=== PATIENT | male | born 1965 | race African-American/Black ===

== ENCOUNTER 2019-10-02 14:50 | Emergency (ER) | payer SELFPAY ==
[2019-10-02] MEDS ORDERED: Tetan/Diph/Pertus SYR(Tdap)* 0.5 ML SYR(BOOSTRIX) use SYR contains LATEX IM ONE (16:05)
[2019-10-02] MEDS ORDERED: Lidocaine 1% MPF ** 5 ML VIAL INJ ONE (16:05)
--- NOTE | 2019-10-02 16:40 | UC ---
Laceration HPI - History Of Current Complaint Chief Complaint: EDLacSutureRecheck Stated Complaint: LAC ON LEFT HAND PER PT Time Seen by Provider: 10/02/19 16:05 Hx Obtained From: Patient Pain Intensity: 4 - Allergies/Home Medications Allergies/Adverse Reactions: Allergies Allergy/AdvReac Type Severity Reaction Status Date / Time No Known Allergies Allergy Verified 10/02/19 15:01 PMH/Surg Hx/FS Hx/Imm Hx Previously Healthy: No - Family History Known Family History: Positive: Non-Contributory - Social History Occupation: Employed Full-time Lives: With Family Alcohol Use: Daily Substance Use Type: None Smoking Status (MU): Heavy Every Day Tobacco Smoker Review of Systems All Other Systems Reviewed And Are Negative: Yes Physical Exam Vital Signs: Initial Vital Signs Temp 99.3 F 10/02/19 14:54 Pulse 82 10/02/19 14:54 Resp 16 10/02/19 14:54 BP 146/82 10/02/19 14:54 Pulse Ox 98 10/02/19 14:54 Discharge ED - Discharge Plan Condition: Improved Disposition: HOME Patient Education Materials: Care For Your Stitches (ED) Referrals: [facility] [Outside] Additional Instructions: Suture removal in 10 days Keep wound clean and dry Return to ER for redness, swelling, or drainage from suture site - Billing Disposition and Condition Condition: IMPROVED Disposition: Home
[2019-10-02 16:41] VITALS: BP 139/78
--- NOTE | 2019-10-02 16:45 | ED ---
Laceration/Wound HPI - HPI Summary HPI Summary: Patient is a 53-year-old male who presents emergency department for laceration to his left hand that occurred just prior to arrival. 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 No other injuries were sustained. Symptoms are mild in severity. Unaware of last tetanus immunization. No significant past medical history. Symptomsaremildinseverity.Nocurrentmodifyingfactors. - History of Current Complaint Stated Complaint: LAC ON LEFT HAND PER PT Time Seen by Provider: 10/02/19 16:05 Hx Obtained From: Patient Pain Intensity: 4 - Allergy/Home Medications Allergies/Adverse Reactions: Allergies Allergy/AdvReac Type Severity Reaction Status Date / Time No Known Allergies Allergy Verified 10/02/19 15:01 PMH/Surg Hx/FS Hx/Imm Hx Previously Healthy: Yes - Immunization History Date of Tetanus Vaccine: need tdap Immunizations Up to Date: Yes Infectious Disease History: No Infectious Disease History: Denies: Traveled Outside the in Last 30 Days - Family History Known Family History: Positive: Non-Contributory - Social History Occupation: Employed Full-time Lives: With Family Alcohol Use: Daily Substance Use Type: Reports: None Smoking Status (MU): Heavy Every Day Tobacco Smoker Review of Systems Positive: Other - laceration to left hand. Neurological: Negative Negative: Weakness, Paresthesia, Numbness All Other Systems Reviewed And Are Negative: Yes Physical Exam Triage Information Reviewed: Yes Vital Signs On Initial Exam: Initial Vitals Temp Pulse Resp BP Pulse Ox 99.3 F 82 16 146/82 98 10/02/19 14:54 10/02/19 14:54 10/02/19 14:54 10/02/19 14:54 10/02/19 14:54 Vital Signs Reviewed: Yes Appearance: Positive: Well-Appearing - Pt. sitting on bed in NAD. Skin: Positive: Warm, Dry Head/Face: Positive: Normal Head/Face Inspection Eyes: Positive: Normal, EOMI Neck: Positive: Supple Musculoskeletal: Positive: Other - 4cm linear superficial gaping laceration noted to the dorsal aspect of left hand. Full ROM of all digits. No bony tenderness. Neurological: Positive: Normal, CN Intact II-III Psychiatric: Positive: Affect/Mood Appropriate Procedures - Sedation Patient Received Moderate/Deep Sedation with Procedure: No - Laceration/Wound Repair 2 Location: upper extremity - left hand Description: Linear Anesthesia: Local, 1.0%, Lido Length, Depth and Shape: 4cm linear Betadine Prep?: No - hibiclens Irrigated w/ Saline (ccs): 150 Laceration/Wound Explored: clean Closure: Single Layer Suture Type: Nylon Number of Sutures: 7 Layer Closure?: No Sterile Dressing Applied?: Yes Diagnostics - Vital Signs Vital Signs Temp Pulse Resp BP Pulse Ox 10/02/19 14:54 99.3 F 82 16 146/82 98 - Laboratory Lab Statement: Any lab studies that have been ordered have been reviewed, and results considered in the medical decision making process. Laceration Repair Course/Dx - Course Course Of Treatment: Patient presenting with simple hand laceration that was repaired as noted above. Tetanus was updated. Suture removal in 10 days. Advised patient to keep wound clean and dry. To return to the ER for redness, swelling or drainage from wound. Patient understands and agrees with plan. - Differential Dx Differental Diagnoses: Laceration, Tendon Laceration - Clinical Impression Provider Diagnoses: Hand laceration Discharge ED - Sign-Out/Discharge Documenting (check all that apply): Patient Departure - Discharge Plan Condition: Improved Disposition: HOME Patient Education Materials: Care For Your Stitches (ED) Referrals: [facility] [Outside] Additional Instructions: Suture removal in 10 days Keep wound clean and dry Return to ER for redness, swelling, or drainage from suture site - Billing Disposition and Condition Condition: IMPROVED Disposition: Home
== END 2019-10-02 16:42 | disposition home or self-care (01) ==
LOC: ED 14:50
DX: S61.412A Laceration without foreign body of left hand, initial encounter (principal); W26.8XXA Contact with other sharp object(s), not elsewhere classified, initial encounter; Y93.H3 Activity, building and construction; Y92.9 Unspecified place or not applicable; Y99.0 Civilian activity done for income or pay; Z23 Encounter for immunization; F17.200 Nicotine dependence, unspecified, uncomplicated
CPT/HCPCS: 12002; 90471; 90715; 99282